=== PATIENT | female | born 1985 | race Hispanic/Latino ===

== ENCOUNTER 2019-02-08 03:35 | Emergency (ER) | payer OTHER ==
[2019-02-08 03:38] VITALS: BP 102/66; PULSE 69; RESP 18; TEMP 99.2; O2SAT 98
[2019-02-08 04:47] LABS: PH,URINE 8.5 (5.0-8.0); SQUAMOUS EPITHIAL 5 /hpf (0-5); URINE BILIRUBIN NEGATIVE (NEGATIVE); URINE BLOOD NEGATIVE (NEGATIVE); URINE CLARITY Clear (Clear); URINE COLOR YELLOW (YELLOW); URINE GLUCOSE (UA) NEGATIVE (Normal); URINE LEUKOCYTE ESTERASE NEGATIVE Leu/uL (Negative); URINE PROTEIN NEGATIVE (NEGATIVE)
[2019-02-08 04:48] LABS: URINE UROBILINOGEN 0.2 mg/dL (0.2-1.0)
--- NOTE | 2019-02-08 05:16 | C.PDOC ---
History Of Present Illness 34 year old female presents with left hand pain s/p fall MANAGER STORY. Pt also complaining of left upper back and left abdominal pain. Denies head injury, UTI symptoms, nausea, or vomiting. Time Seen by Provider: 02/08/19 03:56 Chief Complaint (Nursing): Finger,Hand,&Wrist History Per: Patient History/Exam Limitations: no limitations Onset/Duration Of Symptoms: Hrs Current Symptoms Are (Timing): Still Present Recent travel outside of the [place]: No Past Medical History Reviewed: Historical Data, Nursing Documentation, Vital Signs Vital Signs: Last Vital Signs Temp 99.2 F 02/08/19 03:38 Pulse 69 02/08/19 03:38 Resp 18 02/08/19 03:38 BP 102/66 02/08/19 03:38 Pulse Ox 98 02/08/19 03:38 Family History: States: Unknown Family Hx - Social History Hx Alcohol Use: No Hx Substance Use: No - Immunization History Hx Tetanus Toxoid Vaccination: Yes Hx Influenza Vaccination: Yes Hx Pneumococcal Vaccination: Yes Review Of Systems Gastrointestinal: Positive for: Abdominal Pain. Negative for: Nausea, Vomiting Genitourinary: Negative for: Dysuria, Hematuria Musculoskeletal: Positive for: Back Pain, Hand Pain Neurological: Negative for: Weakness, Numbness Physical Exam - Physical Exam Appears: Non-toxic Skin: Normal Color, Warm Head: Atraumatic, Normacephalic Gastrointestinal/Abdominal: Soft, No Tenderness Back: No Vertebral Tenderness, Paraspinal Tenderness (Mild left lumbar) Extremity: Capillary Refill (<2 seconds), No Deformity, Other (Tenderness to left 3rd mcp with minimal swelling.) Pulses: Left Radial: Normal, Right Radial: Normal Neurological/Psych: Oriented x3, Normal Speech, Normal Motor, Normal Sensation ED Course And Treatment - Laboratory Results Lab Results: Urine Color Yellow (YELLOW) 02/08/19 04:27 Urine Clarity Clear (Clear) 02/08/19 04:27 Urine pH 8.5 (5.0-8.0) 02/08/19 04:27 Ur Specific [place] 1.020 (1.003-1.030) 02/08/19 04:27 Urine Protein Negative mg/dL (NEGATIVE) 02/08/19 04:27 Urine Glucose (UA) Negative mg/dL (Normal) 02/08/19 04:27 Urine Ketones Negative mg/dL (NEGATIVE) 02/08/19 04:27 Urine Blood Negative (NEGATIVE) 02/08/19 04:27 Urine Nitrate Negative (NEGATIVE) 02/08/19 04:27 Urine Bilirubin Negative (NEGATIVE) 02/08/19 04:27 Urine Urobilinogen 0.2 mg/dL (0.2-1.0) 02/08/19 04:27 Ur Leukocyte Esterase Negative Jesus/uL (Negative) 02/08/19 04:27 Urine WBC (Auto) 2 /hpf (0-5) 02/08/19 04:27 Urine RBC (Auto) 1 /hpf (0-3) 02/08/19 04:27 Ur Squamous Epith Cells 5 /hpf (0-5) 02/08/19 04:27 Urine HCG, Qual Negative (NEGATIVE) 02/08/19 04:27 Urine HCG, Qual Negative (NEGATIVE) 02/08/19 04:27 O2 Sat by Pulse Oximetry: 98 (room air) Pulse Ox Interpretation: Normal - Other Rad Left hand x-ray X-Ray: Interpreted by Me, Viewed By Me Interpretation: Comminuted fracture of left 3rd mcp, appears to be healing. Progress Note: Left hand x-ray and UA ordered, UA was within normal limits, x- ray showedcommunited 3rd MCP fracture. 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 Patient was told by me that she will be placed in hand splint and can take tylenol at home for pain, patient instantly began aggressive, jumped off the bed, pushed me out of the way and left the ER, eloped prior to splint. Disposition - Disposition Disposition: ELOPEMENT - ER ONLY Disposition Time: 04:00 Condition: STABLE Forms: [facility] ([place]an) - Clinical Impression Clinical Impression: Hand fracture, left - PA / PRICING ACTUARY / Resident Statement MD/DO has reviewed & agrees with the documentation as recorded. - Scribe Statement The provider has reviewed the documentation as recorded by the Scriblena Segura All medical record entries made by the Scribe were at my direction and personally dictated by me. I have reviewed the chart and agree that the record accurately reflects my personal performance of the history, physical exam, medical decision making, and the department course for this patient. I have also personally directed, reviewed, and agree with the discharge instructions and disposition.
--- NOTE | 2019-02-08 07:37 | RAD ---
PROCEDURE: Left Hand Radiographs. HISTORY: pain, fall, 3rd MCP COMPARISON: None. TECHNIQUE: 3 views obtained. FINDINGS: BONES: Comminuted impacted fracture of the 3rd metacarpal bone is appreciate the level of the mid diaphysis with additional fracture appreciable. JOINTS: No subluxation or dislocation appreciable. SOFT TISSUES: Unremarkable. OTHER FINDINGS: None. IMPRESSION: Comminuted impacted fracture mid diaphysis left 3rd metacarpal bone. No dislocation or additional fracture appreciable.
== END 2019-02-08 04:50 | disposition left against medical advice (07) ==
LOC: C.ER 03:35
DX: S62.303A Unspecified fracture of third metacarpal bone, left hand, initial encounter for closed fracture (principal); W19.XXXA Unspecified fall, initial encounter
CPT/HCPCS: 73130; 81001; 84703; 96372; 99283; J1885